=== PATIENT | male | born 1995 | race Caucasian/White ===

== ENCOUNTER 2016-05-21 12:01 | Emergency (ER) | payer BC ==
[~2016-05-21] VITALS: Ht 170.2 cm; Wt 63.7 kg
[~2016-05-21 12:01] MED LIST: CETI10TA10 PO; EPP3/2 IM; PRED20TA PO
[2016-05-21 12:13] VITALS: TEMP 36.9; Ht 170.2 cm; Wt 63.7 kg
[2016-05-21] MEDS ORDERED: METHYLPREDNISOLONE 125 MG VIAL IV STA (12:51)
[2016-05-21 13:17] LABS: BASO % 0.3 %; BASO ABS # 0.02 K/uL (0-0.2); COMPLETE YES; EOS % 0.5 %; HEMATOCRIT 46.2 % (42-52); IG% 0.2 %; LYMPH % 20.3 %; LYMPH ABS # 1.21 K/uL (1.2-3.4); MEAN CORPUSCULAR HEMOGLOBIN 29.6 pg (25-34); MEAN CORPUSCULAR HGB CONC 35.3 g/dl (32-36); MEAN PLATELET VOLUME 10.1 fL (7.4-10.4); MONO % 3.4 %; NEUT % 75.3 %; PLATELET COUNT 307 K/uL (130-400); WHITE BLOOD COUNT 5.97 K/uL (4.8-10.8)
[2016-05-21 13:32] LABS: BUN/CREATININE RATIO 19.8 (10-20); CALCIUM 9.4 mg/dl (8.5-10.1); CREATININE 0.83 mg/dl (0.60-1.40); POTASSIUM 3.8 mmol/L (3.5-5.1)
[2016-05-21 13:35] LABS: ALB/GLOB RATIO 1.3 (0.9-2)
[2016-05-21 14:14] LABS: LYME DISEASE AB IGG NEG (NEG)
[2016-05-21 14:15] LABS: LYME DISEASE AB IGM NEG (NEG)
[2016-05-21] MEDS ORDERED: PRED20TA2 PO (14:58)
[2016-05-21 15:03] VITALS: BP 118/68; PULSE 61; O2SAT 99
--- NOTE | 2016-05-22 15:03 | EMERGENCY ROOM VISIT NOTE ---
History First contact with patient: 12:20 Chief Complaint: RASH Stated Complaint: RASH,WHEEZY,TIGHTNESS,ITCHY History of Present Illness The patient is a 20 year old male who presents to the Emergency Room with complaints of intermittent rash for the past one month. The patient has evidently been seen by multiple providers over this month, and in more than one emergency department. He does not have known contact exposure allergies. He has not had changes in soaps or detergents. His diet has been the same for some time. He states that he has this waxing and waning pinpoint-like rash that will sometimes coalesce into a larger rash. The patient does have a history of asthma in the past and takes Zyrtec on a daily basis. He has an EpiPen but has not had chest pain, shortness of breath, or throat swelling to use this. He is not followed with his primary care physician or with dermatology. The patient is accompanied by his mother who states there is some family history of rheumatologic disease. The patient does not recall any insect bites. He does not have significant pruritus with this rash. He rates his discomfort a 4/10. He states that it worsened today, more so than normal, prompting his presentation. Review of Systems More than 10 systems were reviewed and otherwise negative with the exception of history of present illness. Past Medical/Surgical History Medical Problems: (1) Asthma Surgical Problems: (1) History of appendectomy Family History Diabetes mellitus Heart disease Hypertension Social History Smoking Status: Never Smoker Drug Use: none Marital Status: single Housing Status: lives with family Occupation Status: student Current/Historical Medications Scheduled Cetirizine Hcl (Zyrtec), 10 MG PO QAM Prednisone (Prednisone), 40 MG PO DAILY Prednisone (Prednisone Tab), 0 PO DAILY Scheduled PRN Epinephrine (Epipen 2-Claude), 1 AMP IM DIRECTED PRN for ALLERGIC REACTION Allergies Coded Allergies: Shellfish (Verified Allergy, Severe, hives vomiting diarrhea, 05/21/16) NO KNOWN DRUG ALLERGIES (Verified Allergy, Unknown, ., 05/21/16) Physical Exam Vital Signs Date Time Temp Pulse Resp B/P Pulse Ox O2 Delivery O2 Flow Rate FiO2 05/21/16 15:03 61 16 118/68 99 05/21/16 13:11 67 16 110/58 100 Room Air 05/21/16 12:13 36.9 89 18 123/77 98 Room Air Pain Rating (0-10): 0 Physical Exam VITALS: Vitals are noted on the nurse's note and reviewed by myself. Vital signs stable. GENERAL: Well-developed, well-nourished, white male, who is in no acute distress and resting comfortably. Patient is cooperative with the examination. HEAD: Normocephalic atraumatic. EARS: External ear normal. External auditory canals clear, tympanic membranes pearly rivera without erythema or effusion bilaterally. EYES: Pupils equal round and reactive to light and accommodation. Conjunctivae without injection, sclerae without icterus. Extraocular movements intact. NOSE: Patent, turbinates without inflammation or discharge. MOUTH: Mucous membranes moist. Tonsils are not enlarged. Pharynx without erythema, blood, or exudate. Uvula midline. Airway patent. NECK: Supple without nuchal rigidity. No lymphadenopathy. No thyromegaly. Cervical spine is nontender. HEART: Regular rate and rhythm without murmurs gallops or rubs. LUNGS: Clear to auscultation bilaterally without wheezes, rales or rhonchi. No retractions or accessory muscle use. ABDOMEN: Positive normal bowel sounds x 4. Soft, nontender, without masses or organomegaly. No guarding or rebound tenderness. MUSCULOSKELETAL: No muscle atrophy, erythema, or edema noted. Full range of motion without joint tenderness in all extremities. SKIN: The skin was with a diffuse maculopapular rash throughout the arms, abdomen, and chest. Palms are spared. No lesions in the mouth. Medical Decision & Procedures Laboratory Results 05/21/16 13:00 Red Blood Count 5.50, Mean Corpuscular Volume 84.0, Mean Corpuscular Hemoglobin 29.6, Mean Corpuscular Hemoglobin Concent 35.3, Mean Platelet Volume 10.1, Neutrophils (%) (Auto) 75.3, Lymphocytes (%) (Auto) 20.3, Monocytes (%) (Auto) 3.4, Eosinophils (%) (Auto) 0.5, Basophils (%) (Auto) 0.3, Neutrophils # (Auto) 4.50, Lymphocytes # (Auto) 1.21, Monocytes # (Auto) 0.20, Eosinophils # (Auto) 0.03, Basophils # (Auto) 0.02 05/21/16 13:00 Test 1/11/17 13:00 White Blood Count 5.97 K/uL (4.8-10.8) Red Blood Count 5.50 M/uL (4.7-6.1) Hemoglobin 16.3 g/dL (14.0-18.0) Hematocrit 46.2 % (42-52) Mean Corpuscular Volume 84.0 fL (80-100) Mean Corpuscular Hemoglobin 29.6 pg (25-34) Mean Corpuscular Hemoglobin Concent 35.3 g/dl (32-36) Platelet Count 307 K/uL (130-400) Mean Platelet Volume 10.1 fL (7.4-10.4) Neutrophils (%) (Auto) 75.3 % Lymphocytes (%) (Auto) 20.3 % Monocytes (%) (Auto) 3.4 % Eosinophils (%) (Auto) 0.5 % Basophils (%) (Auto) 0.3 % Neutrophils # (Auto) 4.50 K/uL (1.4-6.5) Lymphocytes # (Auto) 1.21 K/uL (1.2-3.4) Monocytes # (Auto) 0.20 K/uL (0.11-0.59) Eosinophils # (Auto) 0.03 K/uL (0-0.5) Basophils # (Auto) 0.02 K/uL (0-0.2) RDW Standard Deviation 37.8 fL (36.4-46.3) RDW Coefficient of Variation 12.6 % (11.5-14.5) Immature Granulocyte % (Auto) 0.2 % Immature Granulocyte # (Auto) 0.01 K/uL (0.00-0.02) Anion Gap 10.0 mmol/L (3-11) Est Creatinine Clear Calc Drug Dose 129.0 ml/min Estimated GFR () 147.8 Estimated GFR (Non- 127.6 BUN/Creatinine Ratio 19.8 (10-20) Calcium Level 9.4 mg/dl (8.5-10.1) Total Bilirubin 0.4 mg/dl (0.2-1) Aspartate Amino Transf (AST/SGOT) 13 U/L (15-37) Alanine Aminotransferase (ALT/SGPT) 18 U/L (12-78) Alkaline Phosphatase 85 U/L (45-117) Total Protein 7.8 gm/dl (6.4-8.2) Albumin 4.4 gm/dl (3.4-5.0) Globulin 3.4 gm/dl (2.5-4.0) Albumin/Globulin Ratio 1.3 (0.9-2) Lyme Disease IgG Antibody NEG (NEG) Lyme Disease IgM Antibody NEG (NEG) Monoscreen NEG (NEG) Medications Administered Medications (Trade) Dose Ordered Sig/Renaldo Route Start Time Stop Time Status Last Admin Dose Admin Methylprednisolone Sodium Succinate (Solu-Medrol IV) 125 mg NOW STAT IV 05/21/16 12:51 05/21/16 12:53 DC 05/21/16 13:06 125 MG ED Course Physical exam and history were performed. Nursing notes and EMR were reviewed. Patient appears to have a nonspecific rash ongoing for the past month. Patient does not appear toxic or in anaphylaxis. His rash has evidently done well with steroids over the past month. He has not had blood work for his symptoms, an IV access was established. Blood work was obtained. He was given IV Solu- Medrol here in the department. The patient's blood work is as above and was reviewed. He does not have a significantly elevated white blood cell count. Transaminases and platelet count is normal. Lyme is negative. [place] is negative. The patient had improvement of his rash after the Solu-Medrol. Overall the patient does appear stable for discharge home. I am unsure of the etiology of the patient's symptoms. I discussed plan of care with the patient and his mother, and feel the patient should next follow with a sports official. He has evidently had allergy testing in the past 6 months, and this did not reveal anything according to the mother. The patient may also need to follow with rheumatology as it is evidently a history of rheumatologic disease in the family. He will be given a course of prednisone for his symptoms here. The patient was otherwise invited back to the ER with any new, worsening, or concerning symptoms. The chart was completed utilizing [employer] Voice Recognition Software. Grammatical errors, random word insertions, pronoun errors, and incomplete sentences are an occasional consequence of this system due to software limitations, ambient noise, and hardware issues. Any formal questions or concerns about the content, text, or information contained within the body of this dictation should be directly addressed to the provider for clarification. . Medical Decision Differential diagnosis: Etiologies such as contact dermatitis, viral exanthem, urticaria, allergic reaction, Zhao-Jalen syndrome, toxic epidermal necrolysis, erythema multiforme, cellulitis, scabies, HSV, varicella, zoster, eczema, staph scalded skin syndrome, fungal infection, as well as others were entertained. Impression Primary Impression: Rash and nonspecific skin eruption Departure Information Dispostion Home / Self-Care Condition GOOD Prescriptions Prednisone (Prednisone Tab) 20 Mg Tab 0 PO DAILY, #18 TAB 3 DAILY FOR 3 DAYS, THEN 2 DAILY FOR 3 DAYS, THEN 1 DAILY FOR 3 DAYS. Prov: Brandon Ruiz PA-C 05/21/16 Forms HOME CARE DOCUMENTATION FORM, IMPORTANT VISIT INFORMATION Patient Instructions A Signature Page, [facility] Additional Instructions You were seen and evaluated today on an emergency basis only. This is not a substitute for, or an effort to provide, complete comprehensive medical care. It is not possible to recognize and treat all injuries or illnesses in a single emergency department visit. For this reason it is recommended that you followup with a sports official as soon as possible for further care and evaluation. Primary care physician may be able to refer you to a local sports official. Take prednisone as prescribed You are welcome to return to the emergency department anytime with new, worsening, or concerning symptoms.
== END 2016-05-21 15:04 | disposition home or self-care (01) ==
LOC: C.EDB 12:03 → C.EDD 15:04
DX: R21 Rash and other nonspecific skin eruption (principal); J45.909 Unspecified asthma, uncomplicated

== ENCOUNTER → 2017-12-25 | Outpatient (CLI) | payer OTHER ==
[~2017-12-25] MED LIST changes: -PRED20TA PO
[2017-12-25 12:08] LABS: BASO % 1.2 %; BASO ABS # 0.07 K/uL (0-0.2); EOS % 7.3 %; EOS ABS # 0.42 K/uL (0-0.5); HEMATOCRIT 46.3 % (42-52); HEMOGLOBIN 15.3 g/dL (14.0-18.0); IG# 0.01 K/uL (0.00-0.02); LYMPH % 34.9 %; LYMPH ABS # 2.01 K/uL (1.2-3.4); MEAN CORPUSCULAR HEMOGLOBIN 29.1 pg (25-34); MEAN PLATELET VOLUME 10.6 fL (7.4-10.4); MONO % 7.8 %; MONO ABS # 0.45 K/uL (0.11-0.59); NEUT % 48.6 %; PLATELET COUNT 313 K/uL (130-400); RED CELL DISTRIBUTION WIDTH CV 12.9 % (11.5-14.5); RED CELL DISTRIBUTION WIDTH SD 41.1 fL (36.4-46.3); WHITE BLOOD COUNT 5.76 K/uL (4.8-10.8)
[2017-12-29 20:21] LABS: COMPLEMENT C4** TC 44982E 26 MG/DL (15-53)
== END | disposition home or self-care (01) ==
LOC: C.LAB1850 10:41
PROVIDERS: ATTEND Internal Medicine Pulmonary Disease
DX: J30.9 Allergic rhinitis, unspecified (principal); T78.40XA Allergy, unspecified, initial encounter; X58.XXXA Exposure to other specified factors, initial encounter; T78.3XXA Angioneurotic edema, initial encounter